=== PATIENT | female | born 1985 | race Caucasian/White ===

== ENCOUNTER 2019-05-13 17:21 | Emergency (ER) | payer OTHER, SELFPAY ==
--- NOTE | ~2019-05-13 | US_ITS ---
EXAMINATION: US OB <= 14 weeks fetus DATE: 05/13/2019 22:35 INDICATION: Left ovarian cyst TECHNIQUE: Real-time pelvic ultrasound utilizing both a transvaginal and transabdominal probe was pe rformed. The interpreting radiologist was not present for the study. COMPARISON: None. FINDINGS: The uterus measures 16.4 x 8.9 x 8.3 cm. There is an intrauterine gestational sac. A single po le is identified. The crown rump length measures 7.2 cm, which correlates with an estimated gestation al age of 13 weeks and 1 days. heart motion is identified measuring 144 beats per minute (bpm) by M-mode Doppler. The right ovary is not visualized The left ovary measures 9.7 x 8.5 x 8.4 cm. And contains an 8.2 x 7 .1 x 7.8 cm septated cyst.Vascular flow is identified on color Doppler in the left ovary along the pe riphery of the cyst. No definitive solid nodular soft tissue component of the cystic lesion however i maging of the cystic lesion is suboptimal. There is no free fluid in the pelvis. IMPRESSION: 1. Single living fetus with heart rate of 144 bpm. 2. Gestational age by ultrasound of 13 weeks 1 day(s) +/- 1 week and 1 day with ultrasound estimated date of delivery ([facility]) of 11/17/2019. 3. 8.2 cm complex septated cyst in the left ovary with peripheral vascular flow on color Doppler. Tonya earance is concerning for neoplasm more likely benign than malignant. Reviewed, dictated and finalized at location A. ITE HEATER IMPRESSION: 1. Single living fetus with heart rate of 144 bpm. 2. Gestational age by ultrasound of 13 weeks 1 day(s) +/- 1 week and 1 day wit h ultrasound estimated date of delivery ([facility]) of 11/17/2019. 3. 8.2 cm complex septated cyst in the left ovary with peripheral vascular flow on color Doppler. Appearance is concerning for neoplasm more likely benign akilah n malignant.
[2019-05-13 18:23] VITALS: BP 104/63; PULSE 95; RESP 19; TEMP 37.1; O2SAT 99
[2019-05-13 21:00] VITALS: BP 147/77; PULSE 93; O2SAT 98
--- NOTE | 2019-05-13 21:54 | ED.PREGNANCY ---
HPI - General Chief complaint: OB/Uterine Contractions Stated complaint: 13 weeks preg with pain Time Seen by Provider: 05/13/19 20:53 Source: patient and RN notes reviewed Mode of arrival: ambulatory Limitations: no limitations History of Present Illness HPI Narrative: Pt is a 33 y/o female presenting to the ED c/o ABD pain. Pt reports she started experiencing sharp LLQ ABD pain after getting up off the couch and taking a few stops 5 hrs ago. Pt states the pain has alleviated but is still present. Pt notes she has a baseball sized ovarian cyst on her lt ovary that she is being monitored for. 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 Pt denies vaginal bleeding or vaginal discharge. Pt states she has a Hx of DM. Onset (ago): hour(s) (5) Pain Consistency: other (Alleviated) Location: abdomen (LLQ) Quality: Sharp Associated symptoms: denies other symptoms Vaginal discharge: none Vaginal bleeding: none Related Data Allergies Allergy/AdvReac Type Severity Reaction Status Date / Time No Known Allergies Allergy Unknown Verified 05/13/19 21:06 Review of Systems Review of Systems: All systems reviewed & are unremarkable except as noted in HPI and below Gastrointestinal: Gastrointestinal: Reports abdominal pain (LLQ) Genitourinary: Genitourinary: Denies abnormal vaginal bleeding and Denies vaginal discharge PMFSH Past Medical History Medical History (Updated 05/14/19 @ 00:35 by Amado Galdamez MD) Arthritis Diabetes mellitus GERD (gastroesophageal reflux disease) Surgical History Surgical History History of History of cholecystectomy Family History Family History Grandparent Hypertension Family history of malignant neoplasm of breast Family history of coronary artery disease Mother Family history of diabetes mellitus in first degree relative Asthma Sibling Family history of kidney disease Father Family history of heart disease in male family member before age 55 Other Cerebrovascular accident Family history of allergic disorder Social History Social History Smoking status: Smoker, status unknown Second hand tobacco smoke exposure: No Alcohol intake: never Gender identity (if verbalized by the patient): Female Exam Narrative: Exam Narrative: General appearance: Well-developed, well-nourished Skin: Normal color Head: Normocephalic, nontraumatic Eyes: Clear conjunctiva ENT: Oropharynx normal, ears normal, nose normal Neck: Supple, nontender Chest and respiratory: Airway patent, no respiratory distress, no accessory muscle use Heart: Regular rate/rhythm Abdomen: Soft, mild tenderness left lower quadrant, no organomegaly, quiet bowel sounds Vascular: Normal peripheral pulses, normal capillary refill. 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
--- NOTE | 2019-05-13 22:19 | PC.NURSE ---
Pt refused IV. Will inform Dr Correa of this
[2019-05-13 22:47] VITALS: BP 124/60; PULSE 93; O2SAT 97
[2019-05-13 22:52] LABS: Basophils Absolute Auto 0.1 K/mm3 (0.0-0.1); Basophils Percent Auto 0.5 % (0.2-1.2); Eosinophils Percent Auto 0.4 % (0-4.4); Hematocrit 38.2 % (37.0-47.0); Immature Granulocyte Absolute 0.07 K/mm3 (0.00-0.031); Immature Granulocyte Percent A 0.6 % (0-0.5); Lymphocytes Absolute Auto 2.65 K/mm3 (0.9-3.2); Lymphocytes Percent Auto 24.2 % (18.3-44.2); Mean Corpuscular Hemoglobin 28.8 pg (26-34); Mean Corpuscular Volume 84.7 fl (80-100); Mean Platelet Volume 10.8 fl (7.4-10.4); Monocytes Absolute Auto 0.6 K/mm3 (0.1-0.6); Neutrophils Absolute Auto 7.6 K/mm3 (1.3-6.7); Neutrophils Percent Auto 69.3 % (45.5-73.1); Platelet Count Result 214 k/mm3 (150-375); Red Blood Count 4.51 M/mm3 (4.2-5.4); Red Cell Distribution Width 13.6 % (11.5-14.5)
[2019-05-13 22:56] LABS: Add Urine Microscopic? YES; Appearance Urine Cloudy (Clear); Bacteria Urine Trace /hpf; Bilirubin Urine Negative (Negative); Blood Urine Negative (Negative); Color Urine Yellow (Yellow); Glucose Urine UA Negative (Negative); Ketones Urine Negative (Negative); Leukocyte Esterase Ur Negative LEU/UL (Negative); Mucus Urine Rare /lpf; Nitrate Urine Negative (Negative); Protein Urine Negative (Negative); RBC Urine 0-2 /hpf (0-2); Specific Grav Ur 1.014 (1.001-1.035); Squamous Epithelial Cell Urine Many /hpf (Few); Urobilinogen Urine Negative mg/dL (<2.0); WBC Urine 0-3 /hpf
[2019-05-13 23:06] LABS: Alanine Aminotransferase 17 U/L (4-35); Albumin Level 3.9 g/dL (3.5-5.1); Alkaline Phosphatase 59 U/L (38-126); Aspartate Amino Transferase 20 U/L (14-36); Bilirubin,Total 0.3 mg/dL (0.2-1.3); Blood Urea Nitrogen 6 mg/dL (7-17); Calcium 9.1 mg/dL (8.4-10.2); Carbon Dioxide 17 mmol/L (22-30); Chloride 104 mmol/L (98-107); Estimated Glomerular Filt Rate > 60; Glucose 88 mg/dL (65-105); Lipase 102 U/L (23-300); Potassium 3.5 mmol/L (3.4-5.0); Sodium 134 mmol/L (137-145)
== END 2019-05-14 00:46 | disposition home or self-care (01) ==
PROVIDERS: Emergency Provider Emergency Medicine; PCP Family Medicine
DX: O26.91 Pregnancy related conditions, unspecified, first trimester (principal); N83.202 Unspecified ovarian cyst, left side; Z3A.13 13 weeks gestation of pregnancy
CPT/HCPCS: 36415; 76801; 80053; 81001; 81025; 83690; 85025; 99284

== ENCOUNTER 2019-10-24 15:31 | Observation (INO) | payer OTHER, SELFPAY ==
[2019-10-24 17:55] VITALS: BMI 41.4
--- NOTE | 2019-11-01 08:17 | PM.OBTRLD ---
OB - Triage/Final Diagnosis Visit Information Reason for evaluation: threatened labor
== END 2019-10-24 17:15 | disposition home or self-care (01) ==
PROVIDERS: Admitting Provider Obstetrics & Gynecology; PCP Family Medicine; Visit Provider Obstetrics & Gynecology
DX: O47.9 False labor, unspecified (principal); Z3A.00 Weeks of gestation of pregnancy not specified
CPT/HCPCS: G0378; G0379

== ENCOUNTER 2019-11-05 10:20 | Outpatient (RCR) | payer OTHER, SELFPAY ==
[2019-10-01 11:25] VITALS: BP 111/51; PULSE 96
[2019-10-04 10:43] VITALS: BP 109/50; PULSE 88
[2019-10-15 16:28] VITALS: BP 118/65; PULSE 96
[2019-10-18 10:55] VITALS: BP 114/68; PULSE 81
[2019-10-22 11:03] VITALS: BP 111/62; PULSE 79
[2019-10-29 11:30] VITALS: BP 96/64; PULSE 81
[2019-11-01 10:59] VITALS: BP 114/64; PULSE 96
--- NOTE | ~2019-11-05 | US_ITS ---
EXAMINATION: US OB BPP wo non-stress DATE: 10/08/2019 11:14 CDT INDICATION: Gestational diabetes TECHNIQUE: Real-time transabdominal obstetric ultrasound. FINDINGS: 10/01/2019 There is a single living fetus in vertex presentation. The placenta is on the left without placenta previa. cardiac activity and movement is noted with a heart rate of 137 beats per minute. Biophysical profile: breathin of 2 movement: 2 of 2 tone: 2 of 2 Amniotic flud pocket: 2 of 2 Total score: 8 of 8 IMPRESSION: 1. Single living intrauterine in vertex presentation. 2: Total biophysical profile score of 8/8. Reviewed, dictated and finalized at location A.
--- NOTE | ~2019-11-05 | US_ITS ---
US OB BPP wo non-stress DATE: 10/29/2019 11:37 INDICATION: Gestational diabetes mellitus TECHNIQUE: Real-time and color flow imaging and Doppler analysis COMPARISON: 10/22/2019 obstetrical ultrasound and biophysical profile FINDINGS: Live acosta intrauterine gestation, fetus in vertex presentation. heart rate of 12 2 bpm. Fundal placenta. BIOPHYSICAL PROFILE reported by sterile preparation technician: breathin out of 2 movement: 2 out of 2 tone: 2 out of 2 Amniotic fluid pocket: 2 out of 2 Total score: 8 out of 8 IMPRESSION: Normal biophysical profile score of 8 out of 8 Reviewed, dictated and finalized at Location A. Reviewed, dictated and finalized at location B.
--- NOTE | ~2019-11-05 | US_ITS ---
EXAMINATION: US OB BPP wo non-stress DATE: 10/15/2019 14:37 INDICATION: Gestational diabetes. Third trimester. TECHNIQUE: Real-time pelvic ultrasound was performed. COMPARISON: Ultrasound 10/08/2019 FINDINGS: There is a single living fetus in vertex presentation. The placenta is posterior. heart rate i s 144 beats per minute (bpm). Biophysical profile performed by the technologist: breathing (30 sec sustained breathing in 30 minutes): 2 out of 2 movement (3 gross body movements in 30 minutes): 2 out of 2 tone (one episode of yxwujvm-aazggkhcm-cpbpusj limb movement): 2 out of 2 Amniotic fluid pocket (2 cm): 2 out of 2 Total score: 8 out of 8 IMPRESSION: 1. Single living fetus in vertex presentation. 2. Biophysical profile 8 out of 8. Reviewed, dictated and finalized at location A.
--- NOTE | ~2019-11-05 | US_ITS ---
EXAMINATION: US OB BPP wo non-stress DATE: 10/22/2019 11:45 CDT INDICATION: Gestational diabetes TECHNIQUE: Real-time transabdominal obstetric ultrasound. FINDINGS: 10/15/2019 There is a single living fetus in vertex presentation. The placenta is fundal without placenta previ a. cardiac activity and movement is noted with a heart rate of 137 beats per minute. Biophysical profile: breathin of 2 movement: 2 of 2 tone: 2 of 2 Amniotic flud pocket: 2 of 2 Total score: 8 of 8 IMPRESSION: 1. Single living intrauterine in vertex presentation. 2: Total biophysical profile score of 8/8. Reviewed, dictated and finalized at location B.
--- NOTE | ~2019-11-05 | US_ITS ---
EXAMINATION: US OB BPP wo non-stress EXAM DATE: 11/05/2019 11:27 INDICATION: Gestational diabetes. 3rd trimester. TECHNIQUE: Pelvic obstetrical transabdominal sonogram was performed by a technologist. There are mu ltiple grayscale and Doppler images available for interpretation. There are no earlier studies of th is gestation for comparison. FINDINGS: There is a single fetus identified in vertex presentation with a heart rate of 143 beats pe r minute. The placenta is located in the left fundal position. There is no sonographic evidence of r etroplacental hemorrhage identified. BIOPHYSICAL PROFILE (performed by the technologist) breathing (30 sec sustained breathing in 30 minutes): 2 out of 2 movement (3 gross body movements in 30 minutes): 2 out of 2 tone (one episode of xvdqnag-yvgsxwqge-quegixa limb movement): 2 out of 2 Amniotic fluid pocket (2 cm): 2 out of 2 Total score: 8 out of 8 IMPRESSION: 1. Single fetus with heart rate of 143 bpm. 2. Normal biophysical profile score of 8 out of 8. Reviewed, dictated and finalized at location A.
--- NOTE | ~2019-11-05 | US_ITS ---
EXAMINATION: US OB BPP wo non-stress DATE: 10/01/2019 11:26 INDICATION: Maternal gestational diabetes during third trimester of . TECHNIQUE: Real-time pelvic ultrasound was performed. The interpreting radiologist was not present fo r the study. COMPARISON: 05/13/2019 FINDINGS: There is a single living fetus in vertex presentation. The placenta is fundal. heart rate is 1 34 beats per minute (bpm). Biophysical profile performed by the technologist: breathing (30 sec sustained breathing in 30 minutes): 2 out of 2 movement (3 gross body movements in 30 minutes): 2 out of 2 tone (one episode of rapbfxr-blgtnrhql-pcpfffi limb movement): 2 out of 2 Amniotic fluid pocket (2 cm): 2 out of 2 Total score: 8 out of 8 IMPRESSION: 1. Single living fetus in vertex presentation with heart rate of 134 bpm. 2. Biophysical profile 8 out of 8. Reviewed, dictated and finalized at location A.
[2019-11-05 11:30] VITALS: BP 106/49; PULSE 80
== END 2019-11-08 11:15 | disposition home or self-care (01) ==
LOC: ANHOBOP 10:20
PROVIDERS: PCP Family Medicine; Visit Provider Obstetrics & Gynecology
DX: O24.419 Gestational diabetes mellitus in pregnancy, unspecified control (principal); Z3A.33 33 weeks gestation of pregnancy; Z3A.34 34 weeks gestation of pregnancy; Z3A.35 35 weeks gestation of pregnancy; Z3A.36 36 weeks gestation of pregnancy; Z3A.37 37 weeks gestation of pregnancy; Z3A.38 38 weeks gestation of pregnancy
CPT/HCPCS: 59025; 76819

== ENCOUNTER 2019-11-07 14:15 | Outpatient (CLI) | payer OTHER, SELFPAY ==
[2019-11-07 15:21] LABS: Hematocrit 37.1 % (37.0-47.0); Hemoglobin 12.5 g/dL (12.0-15.0); Mean Corpuscular HGB Conc 33.7 g/dl (32-36); Mean Corpuscular Hemoglobin 28.3 pg (26-34); Mean Corpuscular Volume 84.1 fl (80-100); Mean Platelet Volume 11.1 fl (7.4-10.4); Platelet Count Result 185 k/mm3 (150-375); Red Blood Count 4.41 M/mm3 (4.2-5.4); Red Cell Distribution Width 14.6 % (11.5-14.5); White Blood Count 10.6 K/mm3 (4.5-10.0)
[2019-11-08 09:01] LABS: Rapid Plasma Reagin Non-Reactive (NonReactive)
== END 2019-11-07 14:16 | disposition home or self-care (01) ==
PROVIDERS: PCP Family Medicine; Visit Provider Obstetrics & Gynecology
DX: Z01.812 Encounter for preprocedural laboratory examination (principal)
CPT/HCPCS: 36415; 85027; 86592; 86850; 86900; 86901

== ENCOUNTER 2019-11-08 05:15 | Inpatient (IN) | payer OTHER, SELFPAY ==
[2019-11-08] VITALS (54 sets, daily range): BP systolic 70–119; BP diastolic 39–99; PULSE 54–91; RESP 11–20; TEMP 35.9–36.7; O2SAT 96–100; BMI 41.1
--- NOTE | 2019-11-08 05:15 | LDADM ---
This patient, Archana Martel, was admitted to Labor/Delivery/Recovery 120 on 11/08/19 at 05:15. Plans for labor, pain management and were discussed with patient. Patient/family oriented to hospital policies and general routines including ID bracelet, bed and alarms, visiting hours, pain management, procedures, bathroom and other care routines, personal items, smoking policy, room service/diet and guest tray routines, infant security routines, and visiting hours. Patient/Family are encouraged to report perceived risks to care and to ask questions if they do not understand what they are told or what they should do. See OBIX for further documentation.
[2019-11-08] MEDS: LACTATED RINGERS 1,000 ML 125 ML IV CONT (06:09)
--- NOTE | 2019-11-08 06:50 | WPDANESEPPF ---
Anes - Initial Pre Proc Eval Date/Time: 11/08/19 06:50 Surgeon: Daniel Sood MD Pre Op Diagnosis: Section Patient Data Age: 34 Gender: F Height: 1.7 m Weight: 119 kg Last Vital Signs Pulse 91 11/08/19 06:25 BP 117/99 H 11/08/19 05:35 Allergies Allergy/AdvReac Type Severity Reaction Status Date / Time No Known Allergies Allergy Unknown Verified 10/15/19 13:40 Home Medications Medication Instructions Recorded Confirmed Type PNV cmb#95-ferrous fumarate-FA 1 tablet PO DAILY 10/04/19 11/08/19 History [] aspirin [Adult Low Dose Aspirin] 81 mg PO DAILY 10/04/19 11/08/19 History calcium carbonate [Tums] 400 mg PO TID PRN 10/04/19 11/08/19 History insulin NPH isoph U-100 human 8 unit SUBCUT HS 10/04/19 11/08/19 History Patient hx anesthesia problems: none Family hx anesthesia problems: none PMFSH Past Medical History Medical History (Updated 05/15/19 @ 00:00 by Tawanda Lu) Arthritis Diabetes mellitus GERD (gastroesophageal reflux disease) Surgical History Surgical History History of History of cholecystectomy Family History Family History (Updated 10/15/19 @ 13:42 by Jhon Shipman RN) Grandparent Family history of malignant neoplasm of breast Family history of coronary artery disease Hypertension Mother Family history of diabetes mellitus in first degree relative Asthma Sibling Family history of kidney disease Father Family history of heart disease in male family member before age 55 Other Cerebrovascular accident Other Family history of allergic disorder Social History Social History Smoking status: Smoker, status unknown Second hand tobacco smoke exposure: No Alcohol intake: never Substance use: never Gender identity (if verbalized by the patient): Female Spiritual care concerns: No Anes - Eval Final PreProcedure Day of Procedure 11/08/19 06:50 Patient weight: morbidly obese Heart: regular rate and rhythm Lungs: clear to auscultation and normal air movement Airway: Mallampati scale class II Neurological: alert and oriented Last oral intake: >/= 8 hours ASA classification: III Emergent: no Anesthetic plan: proceed Anesthesia type and monitoring: regional spinal and standard monitoring Informed Consent: The patient's anesthetic plan and its attendant risks and benefits were discussed with the patient/family/POA. Questions were solicited and answers provided to the satisfaction of the patient/family/POA.
[2019-11-08 06:51] LABS: Glucose Point of Care 114 (65-105)
--- NOTE | 2019-11-08 07:16 | PM.IMHP ---
H&P: HPI History of Present Illness Chief complaint: Section Narrative: Archana Martel is a 34 year old female 2 para 1001 presents for repeat delivery. This has been complicated by gestational diabetes for which she does take insulin and has been well controlled with good testing as well. Also left adnexal mass which appears benign has not changed significantly and will be evaluated the time of her delivery. Review of Systems Review of Systems: All systems reviewed & are unremarkable except as noted in HPI and below PMFSH Past Medical History Medical History Arthritis Diabetes mellitus GERD (gastroesophageal reflux disease) Surgical History Surgical History History of History of cholecystectomy Family History Family History Grandparent Family history of malignant neoplasm of breast Family history of coronary artery disease Hypertension Mother Family history of diabetes mellitus in first degree relative Asthma Sibling Family history of kidney disease Father Family history of heart disease in male family member before age 55 Other Cerebrovascular accident Other Family history of allergic disorder Social History Social History Smoking status: Smoker, status unknown Second hand tobacco smoke exposure: No Alcohol intake: never Substance use: never Gender identity (if verbalized by the patient): Female Spiritual care concerns: No Meds Home Medications and Allergies Home Medications Medication Instructions Recorded Confirmed Type PNV cmb#95-ferrous fumarate-FA 1 tablet PO DAILY 10/04/19 11/08/19 History [] aspirin [Adult Low Dose Aspirin] 81 mg PO DAILY 10/04/19 11/08/19 History calcium carbonate [Tums] 400 mg PO TID PRN 10/04/19 11/08/19 History insulin NPH isoph U-100 human 8 unit SUBCUT HS 10/04/19 11/08/19 History Allergies Allergy/AdvReac Type Severity Reaction Status Date / Time No Known Allergies Allergy Unknown Verified 10/15/19 13:40 Vital Signs Vital Signs - 24 hr 11/08/19 05:35 11/08/19 06:25 Pulse Rate 91 91 Blood Pressure 117/99 H Exam Const: General: no acute distress Resp: Auscultation: clear to auscultation bilaterally Cardio: Rate: regular rate Rhythm: regular rhythm GI: GI Palp: Yes Soft to palpation Other: Fundal height 40cm heart tones 140 and reactive Assessment and Plan Assessment and plan (1) Term : Code(s): Z34.90 - Encounter for supervision of normal , unspecified, unspecified trimester Status: Acute (2) Previous delivery affecting : Code(s): O34.219 - Maternal care for unspecified type scar from previous delivery Status: Acute (3) Adnexal mass: Code(s): N94.89 - Other specified conditions associated with female genital organs and menstrual cycle Status: Acute Additional Plan proceed with repeat delivery. Also adnexal mass will be evaluated and if safely able to be performed today will perform left salpingo-oophorectomy. Patient aware that this may not be done today depending on findings intraoperatively.
[2019-11-08] MEDS: LACTATED RINGERS 1,000 ML 999 ML IV CONT ×2 (07:17→08:00)
[2019-11-08] MEDS: ceFAZolin 3 GM/D5W 100 ML 100 ML IVPB (07:25)
--- NOTE | 2019-11-08 08:29 | PM.OBPRVD ---
OB - Delivery Note Procedure Procedure: Procedures Operation Date: 11/08/19 07:30 <No data on this case meets the specified criteria> Route of delivery: (With left salpingo-oophorectomy) Anesthesia type: Spinal Disposition: PACU Narrative: patient prepped and draped in the usual manner for this procedure. Pfannenstiel incision was made which was then carried down to the fascia which was extended bilaterally the length of the skin incision. Superiorly and inferiorly dissected away from rectus muscles. Peritoneum was readily entered bladder flap developed in the uterus scored in a low transverse manner. Vertex was delivered without difficulty rest of the baby also followed without difficulty cord was clamped and cut and placenta was removed manually. Uterus was cleared of membranes and clots and closed using 0 Monocryl running unlocked with good approximation and hemostasis noted. Attention was then placed to the left adnexa and 3 clamps were placed across the infundibulopelvic ligament specimen was removed 2 free ties and a Merlyn stitch rendered this pedicle readily hemostatic. The uterus and adnexa were then returned to the abdomen all subfascial tissue was noted be hemostatic and the fascia was approximated using 0 Vicryl from the left lateral midline right angle midline with good approximation hemostasis noted. Subcutaneous tissue was approximated using 0 plain suture and juany used to approximate the skin edges. Patient up procedure well immediate postop condition of mother and baby both excellent. Baby Weeks of gestation at delivery: 39 gender: Male Weight (pounds): 7 Weight (ounces): 12 score one minute: 8 score five minutes: 9
--- NOTE | 2019-11-08 08:36 | PM.OBPRVD ---
OB - Delivery Note Procedure Procedure: Procedures Operation Date: 11/08/19 07:30 <No data on this case meets the specified criteria> Route of delivery: ( With left salpingo oophorectomy) Anesthesia type: Spinal Disposition: PACU Narrative: patient prepped and draped in usual sterile manner for this procedure. Pfannenstiel incision was made which was carried down to the fascia extended bilaterally the length of the skin incision. Superiorly and inferiorly dissected away from the med rectus muscles peritoneum was entered bladder flap was developed. Uterus scored in vertex was deliver with the remainder of the baby followed without difficulty then the cord was cut and placenta removed manually. Uterus was exteriorized cleared of membranes and clots and approximated using 0 Monocryl running interlocking manner with good approximation hemostasis noted. 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 Each of these was had a free tie placed as the clamp was removed and then a Melryn stitch with good hemostasis noted. Uterus was 30 the abdomen gutters were cleared of serosanguineous fluid and clots in the pedicle was noted be hemostatic. All subfascial tissue was hemostatic small bleeders were cauterized. Fascia was approximated 0 Vicryl from left angle midline right of the midline subcutaneous tissue was approximated Using 0 plain suture. Skin juany were used to approximate the skin edges. Patient had procedure well immediate postop condition mother baby were both excellent. [place] Baby Weeks of gestation at delivery: 39 gender: Male Weight (pounds): 7 Weight (ounces): 12 score one minute: 8 score five minutes: 9
[2019-11-08] MEDS: ONDANSETRON INJ 4 MG/2 ML VIAL IV PUSH (08:41)
[2019-11-08] MEDS: diphenhydrAMINE HCl INJ 50 MG/ML VIAL 12.5 MG IV PUSH (09:32)
[2019-11-08] MEDS: OXYTOCIN 30 UNITS/NS 500 ML 30 UNITS/500 ML BAG 125 UNITS IV CONT (09:44)
--- NOTE | 2019-11-08 11:40 | OBPPTRN ---
Addendum entered by Rosanne Alva RN 11/08/19 11:41: Pt transferred to PP room at 1113. Original Note: Patient transferred to post room # [id number] via stretcher. Support person present. Oriented to unit, room, information board, rooming in, admission packet and security measures. Patient verbalizes understanding.
[2019-11-08] MEDS: DEXTROSE 5%/0.45% SOD CHL 1,000 ML 125 ML IV CONT (14:21)
[2019-11-08] MEDS: DOCUSATE SODIUM 100 MG CAPSULE PO (17:25)
[2019-11-08] MEDS: KETOROLAC 30 MG/ML VIAL (*BKC) IV PUSH (17:25)
[2019-11-09 00:40] VITALS: BP 140/87; PULSE 67; RESP 16; TEMP 36.8
[2019-11-09 04:30] VITALS: BP 136/85; PULSE 79; RESP 16; TEMP 36.6
[2019-11-09 05:18] LABS: Basophils Percent Auto 0.3 % (0.2-1.2); Eosinophils Absolute Auto 0.1 K/mm3 (0-0.3); Eosinophils Percent Auto 0.6 % (0-4.4); Hemoglobin 9.7 g/dL (12.0-15.0); Immature Granulocyte Absolute 0.06 K/mm3 (0.00-0.031); Immature Granulocyte Percent A 0.5 % (0-0.5); Lymphocytes Absolute Auto 1.73 K/mm3 (0.9-3.2); Lymphocytes Percent Auto 14.1 % (18.3-44.2); Mean Corpuscular HGB Conc 33.4 g/dl (32-36); Mean Corpuscular Hemoglobin 28.7 pg (26-34); Mean Corpuscular Volume 85.8 fl (80-100); Mean Platelet Volume 11.5 fl (7.4-10.4); Monocytes Absolute Auto 0.7 K/mm3 (0.1-0.6); Monocytes Percent Auto 5.6 % (2.6-8.5); Neutrophils Absolute Auto 9.7 K/mm3 (1.3-6.7); Neutrophils Percent Auto 78.9 % (45.5-73.1); Platelet Count Result 163 k/mm3 (150-375); Red Blood Count 3.38 M/mm3 (4.2-5.4); White Blood Count 12.3 K/mm3 (4.5-10.0)
[2019-11-09 09:25] VITALS: BP 121/62; PULSE 88; RESP 18; TEMP 36.8; O2SAT 98
[2019-11-09] MEDS: DOCUSATE SODIUM 100 MG CAPSULE PO ×2 (09:26→17:12)
[2019-11-09] MEDS: MULTIVIT/MIN/PREN/FOL AC/IRON TABLET 1 TAB PO (09:26)
[2019-11-09] MEDS: POLYSACCHARIDE IRON COMPLEX 150 MG CAPSULE PO ×2 (09:26→17:12)
[2019-11-09] MEDS: IBUPROFEN 600 MG TABLET PO ×3 (09:26→23:08)
--- NOTE | 2019-11-09 09:41 | PM.OBPNVD ---
OB - PN: Subj Subjective Date/time seen: 11/09/19 09:41 Patient comments: pain well controlled (some soreness) baby status: doing well and bottle feeding well [place] feeding status: exclusively bottle feeding Narrative: Doing well, tolerating diet. Denies fevers, chills, nausea, vomiting. Ambulating. Voiding freely, Passing small amount of flatus. OB - PN: Obj Data Labs CBC & Chem 7: 11/09/19 04:37 Labs: Laboratory Results - last 24 hr 11/09/19 04:37 WBC 12.3 H RBC 3.38 L Hgb 9.7 L Hct 29.0 L MCV 85.8 MCH 28.7 MCHC 33.4 RDW 15.0 H Plt Count 163 MPV 11.5 H Immature Gran % (Auto) 0.5 Neut % (Auto) 78.9 H Lymph % (Auto) 14.1 L Sullivan % (Auto) 5.6 Eos % (Auto) 0.6 Baso % (Auto) 0.3 Lymph # (Auto) 1.73 Sullivan # (Auto) 0.7 H Eos # (Auto) 0.1 Baso # (Auto) 0.0 Abs Immat Gran (auto) 0.06 H Absolute Neuts (auto) 9.7 H Absolute Nucleated RBC 0.0 Nucleated RBC % 0.0 OB - PN A/P Assessment and Plan (1) S/P section: Code(s): Z98.891 - History of uterine scar from previous surgery Status: Acute Assessment and Plan: Routine post /post op care Pain management Ambulate (2) Gestational diabetes: Code(s): O24.419 - Gestational diabetes mellitus in , unspecified control Status: Acute Assessment and Plan: Insulin NPH 4units QHS Check fasting blood sugar in AM (3) History of left salpingo-oophorectomy: Code(s): Z90.79 - Acquired absence of other genital organ(s); Z90.721 - Acquired absence of ovaries, unilateral Status: Acute Time Spent With Patient Time: Total time spent is greater than 50% in coordination of care (as documented) at patient's floor/unit and/or counseling patient: Review of Systems Constitutional: Constitutional: Reports no additional constitutional complaints Cardiovascular: Cardiovascular: Reports no additional cardiovascular complaints Respiratory: Respiratory: Reports no additional respiratory complaints Gastrointestinal: Gastrointestinal: Reports no additional gastrointestinal complaints Genitourinary: Genitourinary: Reports no additional female genitourinary complaints Exam Const: General: comfortable, no acute distress, alert and awake Orientation/consciousness: patient oriented x3 Resp: Effort & Inspection: normal respiratory effort Cardio: Rate: regular rate Psych: Appearance: grossly normal Mental Status: mental status grossly normal Affect: normal affect Attitude: cooperative Judgement: Good judgement present (Psych)
--- NOTE | 2019-11-09 09:49 | WPDANLDPN2 ---
Anes-Prog Note L&D Date/Time: 11/09/19 09:49 Comfortable throughout: section Neuraxial method: spinal Epidural/Spinal procedure site: clean & non-tender Neuro status: Neuro function grossly intact. Cardiovascular status: normal Respiratory status: normal Airway patency: baseline Mental status: baseline Post-Op hydration status: normal Vital Signs: Last Vital Signs Temp 36.6 C 11/09/19 04:30 Pulse 79 11/09/19 04:30 Resp 16 11/09/19 04:30 BP 136/85 11/09/19 04:30 Pulse Ox 99 11/08/19 14:00 I/O: Intake & Output 11/08/19 11/09/19 11/09/19 23:59 07:59 15:59 Intake Total 150 1000 Output Total 425 700 Balance -275 300 Post-procedural complaints: none Patient feedback: Patient satisfied with anesthetic care.
--- NOTE | 2019-11-09 09:49 | WPDANLDNPN2 ---
Anes-Prog Note L&D-Neuraxial Date/Time: 11/09/19 09:49 Neuraxial medications: intrathecal PF morphine Opiod-related complaints: none Patient feedback: Patient satisfied with post-operative pain management.
[2019-11-09 18:35] VITALS: BP 114/56; PULSE 79; RESP 18; TEMP 37.6; O2SAT 96
[2019-11-09] MEDS: INSULIN HUMAN NPH (*BKC) 100 UNITS/ML SUB-Q (21:11)
[2019-11-09 22:41] LABS: Glucose Point of Care 90 (65-105)
[2019-11-10 05:29] LABS: Glucose Point of Care 87 (65-105)
[2019-11-10] MEDS: POLYSACCHARIDE IRON COMPLEX 150 MG CAPSULE PO (09:18)
[2019-11-10] MEDS: DOCUSATE SODIUM 100 MG CAPSULE PO (09:18)
[2019-11-10] MEDS: SIMETHICONE 80 MG TAB.CHEW PO (09:18)
[2019-11-10] MEDS: MULTIVIT/MIN/PREN/FOL AC/IRON TABLET 1 TAB PO (09:18)
[2019-11-10] MEDS: IBUPROFEN 600 MG TABLET PO (09:19)
[2019-11-10] MEDS: MEASLES,MUMPS,RUBELLA VACCINE 0.5 ML VIAL SUB-Q (09:21)
[2019-11-10 09:30] VITALS: BP 117/51; PULSE 84; RESP 16; TEMP 36.7; O2SAT 100
--- NOTE | 2019-11-10 09:33 | P.PNOB_ITS ---
OB - PN: Subj Subjective Date/time seen: 11/10/19 09:33 Patient comments: no complaints and pain well controlled baby status: doing well Narrative: Doing well today, tolerating diet. Ambulating. voiding freely, passing flatus. OB - PN: Obj Data Labs CBC & Chem 7: 11/09/19 04:37 Labs: Laboratory Results - last 24 hr 11/09/19 11/10/19 21:10 05:26 POC Capillary Glucose 90 87 OB - PN A/P Assessment and Plan (1) S/P section: Code(s): Z98.891 - History of uterine scar from previous surgery Status: Acute Assessment and Plan: Routine post /post op care Pain management Ambulate (2) Gestational diabetes: Code(s): O24.419 - Gestational diabetes mellitus in , unspecified control Status: Acute (3) History of left salpingo-oophorectomy: Code(s): Z90.79 - Acquired absence of other genital organ(s); Z90.721 - Acquired absence of ovaries, unilateral Status: Acute Time Spent With Patient Time: Total time spent is greater than 50% in coordination of care (as docume nted) at patient's floor/unit and/or counseling patient: Review of Systems Review of Systems: All systems reviewed & are unremarkable except as noted in HPI and below Constitutional: Constitutional: Reports no additional constitutional compl aints Cardiovascular: Cardiovascular: Reports no additional cardiovascular complaints Respiratory: Respiratory: Reports no additional respiratory complaints Gastrointestinal: Gastrointestinal: Reports no additional gastrointestinal complaints Genitourinary: Genitourinary: Reports no additional female genitourinary complaints Exam Const: General: comfortable, no acute distress, alert and awake Orientation/consciousness: patient oriented x3 Resp: Effort & Inspection: normal respiratory effort Cardio: Rate: regular rate Neuro: General: patient oriented x3 Psych: Appearance: grossly normal Mental Status: mental status grossly normal Affect: normal affect Attitude: cooperative Judgement: Good judgement present (Psych)
--- NOTE | 2019-11-10 09:36 | PM.OBDSVD ---
DS: Admitting Diagnosis Admitting Diagnosis Admitting Diagnosis: Encounter for supervision of normal , unspecified, unspecified trimester DS: Discharge Diagnosis Discharge Diagnosis (1) S/P section: Code(s): Z98.891 - History of uterine scar from previous surgery Status: Acute Assessment and Plan: Routine post /post op care Pain management Ambulate (2) Gestational diabetes: Code(s): O24.419 - Gestational diabetes mellitus in , unspecified control Status: Acute (3) History of left salpingo-oophorectomy: Code(s): Z90.79 - Acquired absence of other genital organ(s); Z90.721 - Acquired absence of ovaries, unilateral Status: Acute OB - DS: Summary OB Procedures : None OB Procedures Intrapartum: low cervical, transverse OB Procedures: : None Peripartum Data Procedures: Procedures Operation Date: 11/08/19 07:30 Actual Procedures Side Surgeon p Section Daniel Sood MD Time Spent with Patient Time attestation: Total time spent providing and/or coordinating discharge services: Exam Const: General: comfortable, no acute distress, alert and awake Orientation/consciousness: patient oriented x3 Resp: Effort & Inspection: normal respiratory effort Cardio: Rate: regular rate GI: Inspection: normal to inspection (incision C/D/I. Addison in place) Neuro: General: patient oriented x3 Psych: Appearance: grossly normal Mental Status: mental status grossly normal Affect: normal affect Attitude: cooperative Judgement: Good judgement present (Psych) DS: Data Data Completed and Pending Pending studies at discharge: Pending at discharge 11/08/19 08:07 Surgical [PTH] Routine Labs on day of discharge: Labs from last 24 hours 11/10/19 11/09/19 05:26 21:10 POC Capillary Glucose 87 90 Discharge Plan Discharge Attending physician on discharge: Daniel Sood Discharging Clinician: Ayana Resendiz Patient Disposition: Home, Self-Care Activity: may shower, no straining, no driving, as tolerated and pelvic rest Diet: regular Patient Instructions: How to Stop Smoking (GEN), Antibiotic Form Stand Alone Forms: General Discharge Information Follow-up/Referrals: Daniel Sood MD [Physician] - Discharge Medications: New polysaccharide iron complex 150 mg iron Capsule 150 mg PO BIDWM Qty: 60 RF: 0 ibuprofen 600 mg Tablet 600 mg PO Q6H PRN (Reason: Cramping) Qty: 90 RF: 0 hydrocodone-acetaminophen [[place]] 5-325 mg tablet 1 tablet PO Q6H PRN (Reason: pain) Qty: 20 RF: 0 docusate sodium 100 mg Capsule 100 mg PO BID Qty: 60 RF: 0 docusate sodium [Colace] 100 mg capsule 100 mg PO BID Qty: 60 RF: 0 Continued calcium carbonate [Tums] 200 mg calcium (500 mg) Tablet,Chewable 400 mg PO TID PRN (Reason: Heartburn) RF: 0 PNV cmb#95-ferrous fumarate-FA [] 28 mg iron- 800 mcg Tablet 1 tablet PO DAILY RF: 0 Discontinued aspirin [Adult Low Dose Aspirin] 81 mg Tablet,Delayed Release (Dr/Ec) 81 mg PO DAILY RF: 0 insulin NPH isoph U-100 human 100 unit/mL Suspension 8 unit SUBCUT HS RF: 0 Date of admission: 11/08/19 05:15 Primary Care Provider: Сергей Melendez Admitting Provider: Daniel Sood Attending physician on admission: Daniel Sood
[2019-11-11 10:08] VITALS: BP 117/50; PULSE 72; RESP 18; TEMP 36.9; O2SAT 99
== END 2019-11-10 13:45 | disposition home or self-care (01) | DRG 788 ==
LOC: ANHOB2 11-10 13:15 → ANHLDR 11-11 11:08 → ANHOB2 11-11 11:08
PROVIDERS: Admitting Provider Obstetrics & Gynecology; PCP Family Medicine; Visit Provider Obstetrics & Gynecology
PROC: 10D00Z1 Extraction of Products of Conception, Low, Open Approach (ICD-10-PCS; CPT 59514; principal; 2019-11-08 07:30)
DX: O34.211 Maternal care for low transverse scar from previous cesarean delivery (principal); Z30.2 Encounter for sterilization; O99.214 Obesity complicating childbirth; E66.01 Morbid (severe) obesity due to excess calories; O24.424 Gestational diabetes mellitus in childbirth, insulin controlled; Z3A.39 39 weeks gestation of pregnancy; Z37.0 Single live birth; N94.89 Other specified conditions associated with female genital organs and menstrual cycle
CPT/HCPCS: 36415; 85025; 85027; 86592; 86850; 86900; 86901; 88305; 88307; 90710; A9270; J0131; J0690; J1200; J1815; J1885; J2274; J2405; J2590; J7120

== ENCOUNTER 2022-12-16 11:50 | Emergency (ER) | payer OTHER, BC, SELFPAY ==
--- NOTE | ~2022-12-16 | XR_ITS ---
EXAMINATION: XR lumbar spine 2-3V DATE: 12/16/2022 13:35 INDICATION: Low back pain TECHNIQUE: Anteroposterior and lateral views of the lumbar spine, and cone-down lateral view of the l umbosacral junction were obtained. COMPARISON: 02/21/2017 FINDINGS: Bone alignment is normal. There is no fracture. The vertebral body heights are maintained. There is unchanged mild loss of intervertebral disc space height at L5-S1. Surgical clips in the righ t upper quadrant are likely from prior cholecystectomy. IMPRESSION: 1. Mild lumbar spondylosis without acute findings or significant interval change. Reviewed, dictated and finalized at location B. IMPRESSION: 1. Mild lumbar spondylosis without acute findings or significant interval [place]
--- NOTE | ~2022-12-16 | CT_ITS ---
EXAMINATION: CT cervical spine wo con DATE: 12/16/2022 13:01 INDICATION: Neck pain TECHNIQUE: Computed tomography (CT) of the cervical spine was performed without intravenous contrast. The dose-length product (DLP) was 538.82 mGy-cm. Automated exposure control and iterative reconstruc tion technique were employed. COMPARISON: None FINDINGS: No fracture, dislocation, or subluxation. The vertebral body heights, alignment, and interv ertebral disc spaces are normal. The paravertebral soft tissues are unremarkable. The odontoid proces s is intact. IMPRESSION: 1. No acute osseous abnormality. Reviewed, dictated and finalized at location B.
--- NOTE | ~2022-12-16 | XR_ITS ---
EXAMINATION: XR thoracic spine 3V DATE: 12/16/2022 13:35 INDICATION: Neck pain TECHNIQUE: AP, lateral and lateral swimmer's views of the thoracic spine were obtained. COMPARISON: None. FINDINGS: Bone alignment is normal. There is no fracture. The vertebral body heights are maintained. There is mild loss of intervertebral disc space height at several levels in the thoracic spine. Small degenerative osteophytes project from the anterior endplates of multiple vertebral bodies. Surgical clips in the right upper quadrant are likely from prior cholecystectomy. IMPRESSION: 1. Mild thoracic spondylosis without acute findings. Reviewed, dictated and finalized at location B.
[2022-12-16 11:52] VITALS: BP 119/79; PULSE 100; RESP 14; TEMP 36.2; O2SAT 98
[2022-12-16] MEDS: KETOROLAC (*BKC) 60 MG/2 ML VIAL IM (12:45)
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
--- NOTE | 2022-12-16 13:24 | PC.NURSE ---
Pt to xray via wheelchair at this time
[2022-12-16 13:54] VITALS: BP 124/67; PULSE 88; RESP 18; O2SAT 99
== END 2022-12-16 14:48 | disposition home or self-care (01) ==
PROVIDERS: Emergency Provider Emergency Medicine; PCP Family Medicine
DX: S16.1XXA Strain of muscle, fascia and tendon at neck level, initial encounter (principal); S39.012A Strain of muscle, fascia and tendon of lower back, initial encounter; E11.9 Type 2 diabetes mellitus without complications; F17.200 Nicotine dependence, unspecified, uncomplicated; V43.52XA Car driver injured in collision with other type car in traffic accident, initial encounter
CPT/HCPCS: 72072; 72100; 72125; 96372; 99284; J1885; L0140

== ENCOUNTER 2023-02-15 09:00 | Outpatient (RCR) | payer OTHER, BC, SELFPAY ==
--- NOTE | 2023-01-20 08:58 | OPREHPOC ---
Outpatient Therapy Plan of Care This is a Multidisciplinary Plan of Care that may contain components documented by all disciplines (PT, OT, and ST.) PT Problem 1 PT Problem #1 Knowledge Deficit PT Goal 1 Goal 1* indep with HEP 2* correct body mechanics with lifting from floor PT Problem 2 PT Problem #2 Pain PT Goal 1 Goal decrease pain to improve functional mobility and activity level: 1* pain at worst rating of 4/10 2* pt report times of NO pain 3* self assessment Oswestry rating of 20% limitation in activity level 4* pt report walking tolerance of 20 minutes PT Problem 3 PT Problem #3 Impaired Flexibility PT Goal 1 Goal improve flexibility of trunk and hips to improve mobility and trunk positioning hamstring length with supine SLR 1* R 65; 2* L 55' no pain increase reported with: 3* supine L hip flexion 4* supine L hip IR 5* supine R hip flexion PT Problem 4 PT Problem #4 Impaired Strength PT Goal 1 Goal increase trunk and hip strength to improve support to spine and posture: single leg standing 1* R 30 seconds 2* L 30 seconds hip abduction strength with side lying hip abduction to 15' x 20 reps 3* R 4* L 5* 2 minute walking test distance of 400'
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
== END 2023-02-15 13:16 | disposition home or self-care (01) ==
LOC: ANHPT 09:00
PROVIDERS: PCP Family Medicine; Visit Provider Nurse Practitioner Family
DX: M54.9 Dorsalgia, unspecified (principal); V87.7XXA Person injured in collision between other specified motor vehicles (traffic), initial encounter
CPT/HCPCS: 97014; 97110; 97140; 97161; 97530; G0283

== ENCOUNTER 2023-12-13 18:32 | Emergency (ER) | payer BC, SELFPAY ==
--- NOTE | ~2023-12-13 | XR_ITS ---
EXAMINATION: XR chest 2V DATE: 12/13/2023 18:59 INDICATION: Chest pain. TECHNIQUE: Frontal and lateral views of the chest were obtained. COMPARISON: Chest 2 views 08/24/16 FINDINGS: There is no pneumonia, pleural effusion, or pneumothorax. The heart size is normal. Surgica l clips in the right upper quadrant are likely from cholecystectomy. IMPRESSION: 1. No acute cardiopulmonary disease. Reviewed, dictated and finalized at location A.
--- NOTE | 2023-12-13 18:33 | ECG_ITS ---
Test Date: 2023-12-13 18:38:43 Measurements Intervals [place] Rate: 80 P: 47 MI: 169 QRS: 46 QRSD: 80 T: 41 QT: 359 QTc: 416 Interpretive Statements SINUS RHYTHM LOW QRS VOLTAGE IN PRECORDIAL LEADS BASELINE ARTIFACT- I, II, III, AVR, AVL, AVF, V4 BORDERLINE ECG No previous ECG available for comparison Electronically Signed On 12-13-2023 20:05:25 CDT by Finesse Hammonds D.O.
[2023-12-13 18:34] VITALS: BP 135/90; PULSE 91; RESP 18; TEMP 36.6; O2SAT 100
[2023-12-13 18:51] LABS: Basophils Percent Auto 0.4 % (0.2-1.2); Eosinophils Absolute Auto 0.1 K/mm3 (0-0.3); Eosinophils Percent Auto 1.4 % (0-4.4); Hematocrit 47.2 % (37.0-47.0); Hemoglobin 15.5 g/dL (12.0-15.0); Immature Granulocyte Absolute 0.03 K/mm3 (0.00-0.031); Immature Granulocyte Percent A 0.3 % (0-0.5); Lymphocytes Absolute Auto 2.26 K/mm3 (0.9-3.2); Lymphocytes Percent Auto 25.1 % (18.3-44.2); Mean Corpuscular HGB Conc 32.8 g/dl (32-36); Mean Corpuscular Hemoglobin 28.3 pg (26-34); Mean Corpuscular Volume 86.3 fl (80-100); Mean Platelet Volume 10.7 fl (7.4-10.4); Monocytes Absolute Auto 0.4 K/mm3 (0.1-0.6); Monocytes Percent Auto 4.9 % (2.6-8.5); Neutrophils Absolute Auto 6.1 K/mm3 (1.3-6.7); Neutrophils Percent Auto 67.9 % (45.5-73.1); Platelet Count Result 245 k/mm3 (150-375); Red Blood Count 5.47 M/mm3 (4.2-5.4); Red Cell Distribution Width 13.2 % (11.5-14.5)
[2023-12-13 19:04] LABS: Alanine Aminotransferase 25 U/L (6-35); Albumin Level 4.4 g/dL (3.5-5.1); Alkaline Phosphatase 76 U/L (38-126); Anion Gap 10 mmol/L (4-12); Aspartate Amino Transferase 25 U/L (14-36); Bilirubin,Total 0.4 mg/dL (0.2-1.3); Blood Urea Nitrogen 9 mg/dL (7-17); Calcium 8.7 mg/dL (8.4-10.2); Carbon Dioxide 26 mmol/L (22-30); Chloride 103 mmol/L (98-107); Estimated CRCL calculation 100 ml/min; Estimated Glomerular Filt Rate > 60; Glucose 101 mg/dL (65-110); Lipase 52 U/L (23-300); Potassium 3.8 mmol/L (3.4-5.0); Sodium 139 mmol/L (137-145)
[2023-12-13 19:15] LABS: Troponin I < 0.012 ng/mL (0.000-0.034)
[2023-12-13 19:17] LABS: INR 0.9; Prothrombin Time 12.8 Seconds (11.1-14.7)
[2023-12-13 19:18] LABS: Partial Thromboplastin Time 27.8 Seconds (22.3-36.8)
--- NOTE | 2023-12-13 20:54 | PC.NURSE ---
1st call for a room, no answer
--- NOTE | 2023-12-13 23:34 | PC.NURSE ---
Called for room. No answer
== END 2023-12-14 03:04 | disposition left against medical advice (07) ==
PROVIDERS: Emergency Provider Emergency Medicine; PCP Family Medicine
DX: R07.9 Chest pain, unspecified (principal); Z53.21 Procedure and treatment not carried out due to patient leaving prior to being seen by health care provider
CPT/HCPCS: 36415; 71046; 80053; 83690; 84484; 85025; 85610; 85730; 93005; 99199

== ENCOUNTER 2024-04-27 12:55 | Outpatient (CLI) | payer OTHER, SELFPAY ==
[2024-04-27 13:25] LABS: Basophils Absolute Auto 0.1 K/mm3 (0.0-0.1); Basophils Percent Auto 0.6 % (0.2-1.2); Eosinophils Absolute Auto 0.4 K/mm3 (0-0.3); Eosinophils Percent Auto 3.1 % (0-4.4); Hematocrit 47.2 % (37.0-47.0); Hemoglobin 15.9 g/dL (12.0-15.0); Immature Granulocyte Absolute 0.04 K/mm3 (0.00-0.031); Immature Granulocyte Percent A 0.4 % (0-0.5); Lymphocytes Absolute Auto 2.25 K/mm3 (0.9-3.2); Lymphocytes Percent Auto 20.1 % (18.3-44.2); Mean Corpuscular HGB Conc 33.7 g/dl (32-36); Mean Corpuscular Hemoglobin 28.3 pg (26-34); Mean Corpuscular Volume 84.1 fl (80-100); Mean Platelet Volume 10.4 fl (7.4-10.4); Monocytes Absolute Auto 0.6 K/mm3 (0.1-0.6); Neutrophils Absolute Auto 7.9 K/mm3 (1.3-6.7); Neutrophils Percent Auto 70.8 % (45.5-73.1); Platelet Count Result 264 k/mm3 (150-375); Red Blood Count 5.61 M/mm3 (4.2-5.4); Red Cell Distribution Width 12.9 % (11.5-14.5); White Blood Count 11.2 K/mm3 (4.5-10.0)
[2024-04-27 13:33] LABS: Alanine Aminotransferase 39 U/L (6-35); Albumin Level 4.2 g/dL (3.5-5.1); Alkaline Phosphatase 84 U/L (38-126); Anion Gap 8 mmol/L (4-12); Aspartate Amino Transferase 32 U/L (14-36); Bilirubin,Total 0.8 mg/dL (0.2-1.3); Blood Urea Nitrogen 10 mg/dL (7-17); Calcium 8.9 mg/dL (8.4-10.2); Carbon Dioxide 25 mmol/L (22-30); Chloride 105 mmol/L (98-107); Estimated Glomerular Filt Rate > 60; Glucose 88 mg/dL (65-110); Potassium 4.2 mmol/L (3.4-5.0); Sodium 138 mmol/L (137-145)
[2024-05-02 16:59] LABS: Estrogen 202 pg/mL
== END 2024-04-27 12:56 | disposition home or self-care (01) ==
PROVIDERS: PCP Family Medicine; Visit Provider Family Medicine
DX: F32.9 Major depressive disorder, single episode, unspecified (principal); F41.9 Anxiety disorder, unspecified; Z90.722 Acquired absence of ovaries, bilateral; R45.4 Irritability and anger; R45.86 Emotional lability; N94.89 Other specified conditions associated with female genital organs and menstrual cycle
CPT/HCPCS: 36415; 80053; 82672; 83001; 84443; 85025

== ENCOUNTER 2024-06-19 15:41 | Outpatient (CLI) | payer OTHER, SELFPAY ==
[2024-06-19 16:08] LABS: Basophils Absolute Auto 0.1 K/mm3 (0.0-0.1); Basophils Percent Auto 0.5 % (0.2-1.2); Eosinophils Absolute Auto 0.2 K/mm3 (0-0.3); Eosinophils Percent Auto 1.8 % (0-4.4); Hematocrit 45.5 % (37.0-47.0); Hemoglobin 14.8 g/dL (12.0-15.0); Immature Granulocyte Absolute 0.02 K/mm3 (0.00-0.031); Immature Granulocyte Percent A 0.2 % (0-0.5); Lymphocytes Absolute Auto 2.68 K/mm3 (0.9-3.2); Lymphocytes Percent Auto 27.2 % (18.3-44.2); Mean Corpuscular HGB Conc 32.5 g/dl (32-36); Mean Corpuscular Hemoglobin 27.6 pg (26-34); Mean Corpuscular Volume 84.7 fl (80-100); Mean Platelet Volume 10.6 fl (7.4-10.4); Monocytes Absolute Auto 0.5 K/mm3 (0.1-0.6); Monocytes Percent Auto 5.5 % (2.6-8.5); Neutrophils Absolute Auto 6.4 K/mm3 (1.3-6.7); Neutrophils Percent Auto 64.8 % (45.5-73.1); Platelet Count Result 246 k/mm3 (150-375); Red Blood Count 5.37 M/mm3 (4.2-5.4); Red Cell Distribution Width 13.2 % (11.5-14.5); White Blood Count 9.9 K/mm3 (4.5-10.0)
[2024-06-19 16:28] LABS: Alanine Aminotransferase 27 U/L (6-35); Albumin Level 4.3 g/dL (3.5-5.1); Alkaline Phosphatase 86 U/L (38-126); Aspartate Amino Transferase 28 U/L (14-36); Bilirubin,Total 0.6 mg/dL (0.2-1.3)
--- OUTSIDE RECORDS SUMMARY | 2024-06-19 17:35 | XMS_ITS | Clinical Summary ---
Author Organization [facility] [place] Address [address] [place] [address] Care Team Providers Care Client Experience Consultant Name Role Phone Unavailable Primary Care Provider Unavailabl e Medications No known medications Active Problems No known active problems Encounters Date Type Department Care Team Description 06/15/2024 External Device Data [facility]STRACTION Provider, Abstract 06/14/2024 External Device Data [facility] Provider, Abstract 06/11/2024 External Device Data [facility] Provider, Abstract 05/28/2024 External Device Data [facility] Provider, Abstract 05/02/2024 External Device Data [facility] Provider, Abstract 04/30/2024 External Device Data [facility] Provider, Abstract 04/23/2024 External Device Data [facility]STRA[facility] Provider, Abstract from Last 3 Months Social History Tobacco Use Types Packs/Day Years Used Date Smoking Tobacco: Never Assessed Comments Unknown Sex and Gender Information Value Date Recorded Sex Assigned at Not on file Legal Sex Female 5:38 PM CDT Gender Identity Not on file Sexual Orientation Not on file Last Filed Vital Signs Vital Sign Reading Time Taken Comments Blood Pressure 137/84 09/08/2023 9:37 AM CDT Pulse 84 09/08/2023 9:37 AM CDT Temperature 36.5 C (97.7 F) 09/08/2023 9:37 AM CDT Respiratory Rate 21 09/08/2023 9:37 AM CDT Oxygen Saturation 98% 09/08/2023 9:37 AM CDT Inhaled Oxygen Concentration - - Weight 137 kg (302 lb) 09/08/2023 9:37 AM CDT Height 170.2 cm (5' 7 ) 09/08/2023 9:37 AM CDT Body Mass Index 47.3 09/08/2023 9:37 AM CDT Plan of Treatment Health Maintenance Due Date Last Done Comments Pre-Diabetes and Diabetes Screening 1986 DTAP/TDAP/TD VACCINES (1 - Tdap) 2005 HEPATITIS B VACCINES (1 of 3 - 19+ 3-dose series) 2005 CERVICAL CANCER SCREENING 2016 INFLUENZA VACCINE (#1) 2023 HPV VACCINES Aged Out No longer eligi ble based on patient's age to complete this topic PNEUMOCOCCAL VACCINE 0-49 YEARS Aged Out No longer eligible based on patient's age to complete this topic [facility]
--- OUTSIDE RECORDS SUMMARY | 2024-06-19 17:35 | XMS_ITS | CONTINUITY OF CARE DOCUMENT ---
Author Name mary hernandez Address Unknown Organization [facility] Office Address [address] [place] [address] Phone [phone] Care Team Providers Care Vp & General Counsel Name Role Phone Rito ORTEGA, Arron Unavailable [phone] SCOOBY ORTEGA, FER F Unavailable [phone] INSURANCE PROVIDERS Payer name Policy type / Coverage type [place] red libertarian ID [facility] [id number] [facility] (MEDICARE) [facility] [id number]
== END 2024-06-19 15:42 | disposition home or self-care (01) ==
LOC: ANHLAB 15:43
PROVIDERS: PCP Family Medicine; Visit Provider Family Medicine
DX: D72.829 Elevated white blood cell count, unspecified (principal); R74.01 Elevation of levels of liver transaminase levels
CPT/HCPCS: 36415; 80076; 85025